=== PATIENT | female | born 1985 | race Two or more races ===

== ENCOUNTER 2022-10-11 17:34 | Emergency (ER) | payer BC, OTHER ==
[~2022-10-11] VITALS: Ht 157.5 cm; Wt 95.7 kg
[2022-10-11 18:14] LABS: Basophils # (auto) 0.1 10 ^3/uL (0-0.2); Basophils % (auto) 1.4 % (0.0-2.0); Eosinophils # (auto) 0.2 10 ^3/uL (0-0.8); Hematocrit 39.3 % (36.0-46.0); Hemoglobin 13.2 g/dL (12.2-16.2); Lymphocytes # (auto) 1.1 10 ^3/uL (0.4-5.4); Lymphocytes % (auto) 18.7 % (10.0-50.0); Mean Corpuscular Hemoglobin 28.7 pg (28.0-32.0); Mean Corpuscular Hgb Conc. 33.6 g/dL (32.0-36.0); Mean Corpuscular Volume 85.3 fL (80.0-100.0); Monocytes # (auto) 0.9 10 ^3/uL (0-1.3); Monocytes % (auto) 14.8 % (0.0-12.0); Neutrophils # (auto) 3.6 10 ^3/uL (1.6-8.6); Neutrophils % (auto) 62.1 % (37.0-80.0); Nucleated Red Blood Cells % 0.2 %; Red Cell Distribution Width 15.8 % (11.8-14.3); White Blood Cell 5.9 10^3/uL (4.4-10.8)
[2022-10-11 18:35] LABS: Albumin 3.5 g/dL (3.4-5.0); Calcium 8.9 mg/dL (8.5-10.1); Potassium 3.7 mmol/L (3.5-5.1)
[2022-10-11 18:43] LABS: BUN/Creatinine Ratio 13.6 (10.0-20.0); Bilirubin, Total 0.2 mg/dL (0.2-1.0); Total Protein 7.4 g/dL (6.4-8.2)
[2022-10-11] MEDS ORDERED: IOHEXOL 350 MG/ML 100ML IJ ONE (22:14)
[2022-10-11] MEDS ORDERED: MEDR5TAB28 PO (23:33)
[2022-10-11] MEDS ORDERED: ALBU108A5 IN (23:33)
[2022-10-11] MEDS ORDERED: AZITTAB PO (23:33)
[2022-10-12 00:04] VITALS: BP 109/61
[2022-10-12] MEDS ORDERED: ALBUTEROL SULF 2.5 MG/0.5ML(0.5%) NEB SOLN NEB ONE (00:30)
[2022-10-12] MEDS ORDERED: IPRATROPIUM BROM 0.5 MG/2.5ML INH SOL NEB ONE (00:30)
== END 2022-10-12 01:02 | disposition home or self-care (01) ==
LOC: ER 17:34
DX: N94.6 Dysmenorrhea, unspecified (principal); J45.909 Unspecified asthma, uncomplicated; R10.2 Pelvic and perineal pain; Z90.49 Acquired absence of other specified parts of digestive tract; Z98.890 Other specified postprocedural states
CPT/HCPCS: 36415; 70450; 71045; 71275; 76830; 76856; 80053; 84702; 85025; 85379; 86850; 86900; 86901; 93005; 94640; 99285; J7644; Q9967

== ENCOUNTER 2024-01-06 00:25 | Emergency (ER) | payer BC, OTHER ==
[~2024-01-06] VITALS: Ht 157.5 cm; Wt 97.7 kg
[~2024-01-06 00:25] MED LIST: ALBU108A5 IN; AZITTAB PO; MEDR5TAB28 PO
[2024-01-06] MEDS: IBUPROFEN 800 MG TAB PO ONE (00:50)
[2024-01-06 01:50] VITALS: BP 113/62
[2024-01-06 02:25] VITALS: TEMP 98.6
[2024-01-06] MEDS ORDERED: ACET500T58 PO (02:31)
[2024-01-06] MEDS ORDERED: AZIT-43 PO (02:31)
[2024-01-06] MEDS ORDERED: ALBUAER3 IN (02:31)
[2024-01-06] MEDS ORDERED: PRED20TA2 PO (02:31)
[2024-01-06 02:48] LABS: Rapid Influenza A Negative (Negative); Rapid Influenza B Negative (Negative)
[2024-01-06] MEDS: cefTRIAXone SOD 1,000 MG VL IM ONE (02:48)
[2024-01-06] MEDS: DexAMETHasone SOD PHOS 10MG/1ML VIAL INJ IM ONE (02:48)
[2024-01-06 02:49] VITALS: PULSE 76; RESP 16; O2SAT 96
[2024-01-06 02:53] LABS: COVID19 ANTIGEN SOFIA FIA POSITIVE (NEGATIVE)
== END 2024-01-06 02:57 | disposition home or self-care (01) ==
LOC: ER 00:25
DX: U07.1 COVID-19 (principal); J06.9 Acute upper respiratory infection, unspecified; J45.909 Unspecified asthma, uncomplicated; Z90.49 Acquired absence of other specified parts of digestive tract
CPT/HCPCS: 36415; 87426; 87804; 96372; 99284; J0696; J1100

== ENCOUNTER 2024-05-03 05:07 | Emergency (ER) | payer BC ==
[~2024-05-03] VITALS: Ht 157.5 cm; Wt 100.1 kg
[~2024-05-03 05:07] MED LIST changes: +ACET500T58 PO; +ALBUAER3 IN; +AZIT-43 PO; +PRED20TA2 PO
--- NOTE | 2024-05-03 06:31 | ED.PDOC ---
SOB-HPI HPI Comments 38 year old female presents to the ED with chief complaint of shortness of breath. Patient reports that she has been experiencing shortness of breath for the past 4 days with associated sore throat for the past 2 days. Patient relays that she has history of asthma and physical activity such as walking exacerbates her SOB. Patient denies any chest pain, cough, dizziness, fever, chills, or headache. 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 History Family History Family History: Unknown Social History Smoker: Non-Smoker Alcohol: Denies ETOH Use Drugs: Denies Drug Use Lives In: Home Constitutional: denies: chills, diaphoresis, fatigue, fever, malaise, sweats, weakness, others EENTM: reports: throat pain; denies: blurred vision, double vision, ear bleeding, ear discharge, ear drainage, ear pain, ear ringing, eye pain, eye redness, hearing loss, mouth pain, mouth swelling, nasal discharge, nose bleeding, nose congestion, nose pain, photophobia, tearing, throat swelling, voice changes, others Respiratory: reports: SOB at rest, shortness of breath, SOB with excertion; denies: cough, hemoptysis, orthopnea, stridor, wheezing, others Cardiovascular: denies: chest pain, dizzy spells, diaphoresis, Dyspnea on exertion, edema, irregular heart beat, left arm pain, lightheadedness, palpitati ons, PND, syncope, others Gastrointestinal: denies: abdomen distended, abdominal pain, blood streaked bowels, constipated, diarrhea, dysphagia, difficulty swallowing, hematemesis, melena, nausea, poor appetite, poor fluid intake, rectal bleeding, rectal pain, vomiting, others Genitourinary: denies: abnormal vagina bleeding, burning, dyspareunia, dysuria, flank pain, frequency, hematuria, incontinence, pain, , vagina discharge, urgency, others Neurological: denies: dizziness, fainting, headache, left sided numbness, left sided weakness, numbness, paresthesia, pre-existing deficit, right sided numbness, right sided weakness, seizure, speech problems, tingling, tremors, weakness, others Musculoskeletal: denies: back pain, gout, joint pain, joint swelling, muscle pain, muscle stiffness, neck pain, others Integumetry: denies: bruises, change in color, change in hair/nails, dryness, laceration, lesions, lumps, rash, wounds, others Allergic/Immunocompromised: denies: Difficulty Healing, Frequent Infections, Hives, Itching, others Hematologic/Lymphatic: denies: anemia, blood clots, easy bleeding, easy bruisin g, swollen glands, others Endocrine: denies: excessive hunger, excessive sweating, excessive thirst, excessive urination, flushing, intolerance to cold, intolerance to heat, unexplained weight gain, unexplained weight loss, others Psychiatric: denies: anxiety, bipolar disorder, depression, hopeless, panic disorder, schizophrenia, sleepless, suicidal, others All Other Systems: Reviewed and Negative Physical Exam General Appearance: Moderate Distress, Normal HEENT: Normal ENT Inspection, PERRL/EOMI Neck: Full Range of Motion, Non-Tender, Normal, Normal Inspection Respiratory: Chest Non-Tender, No Accessory Muscle Use, Other (Coarse breath sounds) Cardiovascular: No Edema, No JVD, No Murmur, No Gallop, Normal Peripheral Pulses, Regular Rate/Rhythm Breast Exam: Deferred Gastrointestinal: No Organomegaly, Non Tender, No Pulsatile Mass, Normal Bowel Sounds, Soft Genitalia: Deferred Pelvic: Deferred Rectal: Deferred Extremities: No calf tenderness, Normal capillary refill, Normal inspection, Normal range of motion, Non-tender, No pedal edema Musculoskeletal : Apperance: Normal Neurologic: Alert, principal statistical scientist II-XII nml as Tested, No Motor Deficits, Normal Affect, Normal Mood, No Sensory Deficits Cerebellar Function: Normal Reflexes: Normal Skin: Dry, Normal Color, Warm Peripheral Pulses: 3+ Radial (R), 3+ Radial (L) Lymphatic: No Adenopathy Was a procedure done? Was a procedure done?: No Differential Dx Differential Diagnosis: Anxiety, Asthma, Bronchitis, CHF, COPD X-Ray, Labs, Meds, VS Vital Signs Date Time Temp Pulse Resp B/P (MAP) Pulse Ox O2 Delivery O2 Flow Rate FiO2 05/03/24 08:34 24 98 Room Air* 0 21 05/03/24 07:19 70 20 99 Room Air 05/03/24 07:19 72 18 101/58 (72) 05/03/24 05:18 98.5 79 16 113/49 (70) 96 Lab Test 05/03/24 08:00 05/03/24 06:23 Range/Units Urine Color Light-yellow Yellow Urine Clarity Turbid H Clear Urine pH 5.0 5.0-9.0 Urine Specific [place] 1.021 1.001-1.035 Urine Protein Negative Negative Urine Ketones Negative Negative Urine Blood Negative Negative /uL Urine Nitrite Negative Negative Urine Bilirubin Negative Negative Urine Urobilinogen Normal Negative mg/dL Urine Leukocyte Esterase Negative Negative /uL Urine RBC 2 0 - 4 /hpf Urine WBC 2 0 - 5 /hpf Urine Squamous Epithelial Cells Few <5 /hpf Urine Bacteria None seen None Seen /hpf Urine Mucus Few None Seen Urine Glucose Normal Normal mg/dL White Blood Count 7.2 4.4-10.8 10^3/uL Red Blood Count 4.87 4.0-5.20 10^6/uL Hemoglobin 14.5 12.2-16.2 g/dL Hematocrit 42.9 36.0-46.0 % Mean Corpuscular Volume 88.2 80.0-100.0 fL Mean Corpuscular Hemoglobin 29.8 28.0-32.0 pg Mean Corpuscular Hemoglobin Concent 33.8 32.0-36.0 g/dL Red Cell Distribution Width 14.4 H 11.8-14.3 % Platelet Count 235 140-450 10^3/uL Mean Platelet Volume 9.1 6.9-10.8 fL Neutrophils (%) (Auto) 57.7 37.0-80.0 % Lymphocytes (%) (Auto) 27.0 10.0-50.0 % Monocytes (%) (Auto) 5.8 0.0-12.0 % Eosinophils (%) (Auto) 8.5 H 0.0-7.0 % Basophils (%) (Auto) 1.0 0.0-2.0 % Neutrophils # (Auto) 4.2 1.6-8.6 10 ^3/uL Lymphocytes # (Auto) 1.9 0.4-5.4 10 ^3/uL Monocytes # (Auto) 0.4 0-1.3 10 ^3/uL Eosinophils # (Auto) 0.6 0-0.8 10 ^3/uL Basophils # (Auto) 0.1 0-0.2 10 ^3/uL Nucleated Red Blood Cells 0.1 % Sodium Level 143 136-145 mmol/L Potassium Level 4.0 3.5-5.1 mmol/L Chloride Level 109 H 98-107 mmol/L Carbon Dioxide Level 26 20-31 mmol/L Anion Gap 8 5-15 Blood Urea Nitrogen 8 L 9-23 mg/dL Creatinine 0.81 0.550-1.02 mg/dL Glomerular Filtration Rate Calc 95 >90 mL/min BUN/Creatinine Ratio 9.9 L 10.0-20.0 Serum Glucose 109 H 74-106 mg/dL Calcium Level 9.5 8.7-10.4 mg/dL Current Medications Medications (Trade) Dose Ordered Sig/[place] Route Start Time Stop Time Status Last Admin Methylprednisolone Sodium Succinate (Solu Medrol) 125 mg ONCE ONCE IV 05/03/24 07:00 05/03/24 07:01 DC 05/03/24 07:46 Albuterol (Ventolin Medneb) 5 mg ONCE ONCE NEB 05/03/24 08:30 05/03/24 08:31 DC 05/03/24 08:33 Ipratropium [place] (Atrovent Medneb) 0.5 mg ONCE ONCE NEB 05/03/24 08:30 05/03/24 08:31 DC 05/03/24 08:34 Patient alert. Complaining of shortness a breath. Saturation pristine on room air. Vitals stable. Unable to take deep breaths. Possible upper respiratory tract infection. Reviewed her history. Was given steroid pain Explained to the patient. Continue cardiac monitoring. Chest XR: FINDINGS: Lines and Tubes: None Lungs: No focal consolidation. Pleura: No effusion.No pneumothorax. Cardiomediastinal contours: Unremarkable Bones: No acute osseous abnormality. IMPRESSION: 1. No acute cardiopulmonary disease. Images Reviewed?: Images reviewed and evaluated by me Time of 1ST Reevaluation: 07:27 Reevaluation 1ST: Improved Patient Education/Counseling: Diagnosis, Treatment Family Education/Counseling: No Family Present Departure 1 Departure Time of Disposition: 06:54 Impression: Primary Impression: Acute respiratory distress Additional Impressions: Pneumonitis Asthma exacerbation Qualified Codes: J45.41 - Moderate persistent asthma with (acute) exacerbation Disposition: ADMITTED INPATIENT Admit to: Med Surg Condition: Guarded Critical Care Note Critical Care Time?: Yes (45 min-critical care time only) Stability Stability form required: No Heart Score Heart Score: Heart Score Response (Comments) Value History N/A 0 EKG N/A 0 Age N/A 0 Risk Factors N/A 0 Troponin N/A 0 Total 0 I personally scribed for OZ CARRASQUILLO MD ([email or web address]) on 05/03/24 at 06:31. Electronically submitted by Tobias King ([email or web address]). I personally scribed for OZ CARRASQUILLO MD ([email or web address]) on 05/03/24 at 09:32. Electronically submitted by Tobias King ([email or web address]). OZ CARRASQUILLO MD May 03, 2024 06:31
[2024-05-03 07:10] LABS: Basophils # (auto) 0.1 10 ^3/uL (0-0.2); Eosinophils # (auto) 0.6 10 ^3/uL (0-0.8); Eosinophils % (auto) 8.5 % (0.0-7.0); Hematocrit 42.9 % (36.0-46.0); Hemoglobin 14.5 g/dL (12.2-16.2); Lymphocytes # (auto) 1.9 10 ^3/uL (0.4-5.4); Mean Corpuscular Hemoglobin 29.8 pg (28.0-32.0); Mean Corpuscular Hgb Conc. 33.8 g/dL (32.0-36.0); Mean Corpuscular Volume 88.2 fL (80.0-100.0); Monocytes # (auto) 0.4 10 ^3/uL (0-1.3); Monocytes % (auto) 5.8 % (0.0-12.0); Neutrophils # (auto) 4.2 10 ^3/uL (1.6-8.6); Neutrophils % (auto) 57.7 % (37.0-80.0); Nucleated Red Blood Cells % 0.1 %; Platelet Count (auto) 235 10^3/uL (140-450); Red Blood Cells 4.87 10^6/uL (4.0-5.20); Red Cell Distribution Width 14.4 % (11.8-14.3); White Blood Cell 7.2 10^3/uL (4.4-10.8)
[2024-05-03 07:19] VITALS: BP 101/58; PULSE 70
[2024-05-03 07:19] LABS: Anion Gap 8 (5-15); Carbon Dioxide 26 mmol/L (20-31); Chloride 109 mmol/L (98-107); Sodium 143 mmol/L (136-145)
[2024-05-03 07:20] LABS: Calcium 9.5 mg/dL (8.7-10.4)
[2024-05-03 07:25] LABS: BUN/Creatinine Ratio 9.9 (10.0-20.0); Blood Urea Nitrogen 8 mg/dL (9-23); Glucose 109 mg/dL (74-106)
[2024-05-03] MEDS: methylPREDNISolone SOD SUCC 125 MG/2 ML VL IV ONE (07:46)
--- NOTE | 2024-05-03 08:18 | DVH ---
CHEST RADIOGRAPH Indication:sob Technique: Single frontal view of the chest was obtained Comparison: XY CHEST XRAY 1 VIEW on DOS: 10/11/22 FINDINGS: Lines and Tubes: None Lungs: No focal consolidation. Pleura: No effusion.No pneumothorax. Cardiomediastinal contours: Unremarkable Bones: No acute osseous abnormality. IMPRESSION: 1. No acute cardiopulmonary disease. HS:Y
[2024-05-03] MEDS: ALBUTEROL SULF 2.5 MG/0.5ML(0.5%) NEB SOLN NEB ONE (08:33)
[2024-05-03 08:34] VITALS: RESP 24; O2SAT 98
[2024-05-03 08:34] LABS: Urine Bacteria None Seen /hpf (None Seen)
[2024-05-03] MEDS: IPRATROPIUM BROM 0.5 MG/2.5ML INH SOL NEB ONE (08:34)
[2024-05-03 08:51] LABS: Urine Blood Negative /uL (Negative); Urine Clarity Turbid (Clear); Urine Color Light-Yellow (Yellow); Urine Mucus FEW (None Seen); Urine Protein, UAD Negative (Negative); Urine Specific Gravity 1.021 (1.001-1.035); Urine Urobilinogen Normal (Negative); Urine WBC 2 /hpf (0 - 5)
== END 2024-05-03 10:21 | disposition left against medical advice (07) ==
LOC: ER 05:07
DX: R06.03 Acute respiratory distress (principal); J98.4 Other disorders of lung; J45.901 Unspecified asthma with (acute) exacerbation; Z90.49 Acquired absence of other specified parts of digestive tract; Z98.890 Other specified postprocedural states
CPT/HCPCS: 36415; 71045; 80048; 81001; 85025; 94640; 96374; 99291; J2919

== ENCOUNTER 2024-07-11 07:48 | Inpatient (IN) | payer BC ==
[2024-07-11] VITALS (11 sets, daily range): BP systolic 110–116; BP diastolic 69–77; PULSE 62–113; RESP 16–25; TEMP 98; O2SAT 94–100
[~2024-07-11] VITALS: Ht 157.5 cm; Wt 75.0 kg
[2024-07-11] MEDS: IPRATROPIUM BROM 0.5 MG/2.5ML INH SOL NEB ONE ×2 (08:16→11:04)
[2024-07-11] MEDS: IPRATROPIUM BROM 0.5 MG/2.5ML INH SOL ONE (08:17)
[2024-07-11] MEDS: ALBUTEROL SULF 2.5 MG/0.5ML(0.5%) NEB SOLN NEB ONE ×2 (08:17→11:04)
[2024-07-11] MEDS: ALBUTEROL SULF 2.5 MG/0.5ML(0.5%) NEB SOLN ONE (08:17)
--- NOTE | 2024-07-11 08:20 | DVH ---
Procedure: XY CHEST PORTABLE 07/11/2024 08:06 AM Indication: sob Comparison: XY CHEST PORTABLE on DOS: 05/03/24, XY CHEST XRAY 1 VIEW on DOS: 10/11/22 TECHNIQUE: XY CHEST PORTABLE FINDINGS: Medical devices: None. Cardiomediastinal: The heart is normal in size. Pulmonary vasculature is within normal limits. Lungs: No focal pulmonary opacity is seen. The costophrenic angles are clear. No pneumothorax. Bones/soft tissues: No acute abnormality is noted. IMPRESSION: 1. No acute cardiopulmonary disease.
--- NOTE | 2024-07-11 08:25 | ED.PDOC ---
SOB-HPI HPI Comments 39 year old female presents to the ED with chief complaint of SOB. Patient reports that she has been experiencing SOB with associated cough and headache for the past 5 days. Patient relays that she has history of asthma and has been seen in the past for similar complaints. Patient denies any chest pain, sore throat, N/V, dizziness, fever, or chills. 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 Family History Family History: Unknown Social History Smoker: Non-Smoker Alcohol: Denies ETOH Use Drugs: Denies Drug Use Lives In: Home Constitutional: denies: chills, diaphoresis, fatigue, fever, malaise, sweats, weakness, others EENTM: denies: blurred vision, double vision, ear bleeding, ear discharge, ear drainage, ear pain, ear ringing, eye pain, eye redness, hearing loss, mouth pain, mouth swelling, nasal discharge, nose bleeding, nose congestion, nose pa in, photophobia, tearing, throat pain, throat swelling, voice changes, others Respiratory: reports: cough, shortness of breath; denies: hemoptysis, orthopnea, SOB at rest, SOB with excertion, stridor, wheezing, others Cardiovascular: denies: chest pain, dizzy spells, diaphoresis, Dyspnea on exertion, edema, irregular heart beat, left arm pain, lightheadedness, palpitations, PND, syncope, others Gastrointestinal: denies: abdomen distended, abdominal pain, blood streaked bowels, constipated, diarrhea, dysphagia, difficulty swallowing, hematemesis, melena, nausea, poor appetite, poor fluid intake, rectal bleeding, rectal pain, vomiting, others Genitourinary: denies: abnormal vagina bleeding, burning, dyspareunia, dysuria, flank pain, frequency, hematuria, incontinence, pain, , vagina discharge, urgency, others Neurological: reports: headache; denies: dizziness, fainting, left sided numbness, left sided weakness, numbness, paresthesia, pre-existing deficit, rig ht sided numbness, right sided weakness, seizure, speech problems, tingling, tremors, weakness, others Musculoskeletal: denies: back pain, gout, joint pain, joint swelling, muscle pain, muscle stiffness, neck pain, others Integumetry: denies: bruises, change in color, change in hair/nails, dryness, laceration, lesions, lumps, rash, wounds, others Allergic/Immunocompromised: denies: Difficulty Healing, Frequent Infections, Hives, Itching, others Hematologic/Lymphatic: denies: anemia, blood clots, easy bleeding, easy bruising, swollen glands, others Endocrine: denies: excessive hunger, excessive sweating, excessive thirst, excessive urination, flushing, intolerance to cold, intolerance to heat, unexplained weight gain, unexplained weight loss, others Psychiatric: denies: anxiety, bipolar disorder, depression, hopeless, panic disorder, schizophrenia, sleepless, suicidal, others All Other Systems: Reviewed and Negative Physical Exam General Appearance: Moderate Distress, Normal HEENT: Normal ENT Inspection, PERRL/EOMI Neck: Full Range of Motion, Non-Tender, Normal, Normal Inspection Respiratory: Accessory Muscle Use, Chest Non-Tender, Respiratory Distress, Wheezing Cardiovascular: No Edema, No JVD, No Murmur, No Gallop, Normal Peripheral Pulses, Regular Rate/Rhythm Breast Exam: Deferred Gastrointestinal: No Organomegaly, Non Tender, No Pulsatile Mass, Normal Bowel Sounds, Soft Genitalia: Deferred Pelvic: Deferred Rectal: Deferred Extremities: No calf tenderness, Normal capillary refill, Normal inspection, Normal range of motion, Non-tender, No pedal edema Musculoskeletal : Apperance: Normal Neurologic: Alert, infant childcare provider II-XII nml as Tested, No Motor Deficits, Normal Affect, Normal Mood, No Sensory Deficits Cerebellar Function: NOT DONE Reflexes: NOT DONE Skin: Dry, Normal Color, Warm Peripheral Pulses: 3+ Radial (R), 3+ Radial (L) Lymphatic: No Adenopathy Was a procedure done? Was a procedure done?: No Differential Dx Differential Diagnosis: Anxiety, Asthma, Bronchitis, Pneumonia, URI X-Ray, Labs, Meds, VS Vital Signs Date Time Temp Pulse Resp B/P (MAP) Pulse Ox O2 Delivery O2 Flow Rate FiO2 07/11/24 08:17 20 97 Room Air* 0 21 21 07/11/24 08:03 98.3 88 25 11/75 (54) 98 98.3 07/11/24 07:59 98.1 82 18 111/72 (85) 97 07/11/24 07:59 88 25 98 Room Air* 0 21 Lab Test 07/11/24 08:20 07/11/24 08:16 Range/Units White Blood Count Pending Red Blood Count Pending Hemoglobin Pending Hematocrit Pending Mean Corpuscular Volume Pending Mean Corpuscular Hemoglobin Pending Mean Corpuscular Hemoglobin Concent Pending Red Cell Distribution Width Pending Platelet Count Pending Mean Platelet Volume Pending Neutrophils (%) (Auto) Pending Lymphocytes (%) (Auto) Pending Monocytes (%) (Auto) Pending Basophils (%) (Auto) Pending Neutrophils # (Auto) Pending Lymphocytes # (Auto) Pending Monocytes # (Auto) Pending Sodium Level 143 136-145 mmol/L Potassium Level 4.0 3.5-5.1 mmol/L Chloride Level 109 H 98-107 mmol/L Carbon Dioxide Level 27 20-31 mmol/L Anion Gap 7 5-15 Blood Urea Nitrogen 7 L 9-23 mg/dL Creatinine 0.79 0.550-1.02 mg/dL Glomerular Filtration Rate Calc 97 >90 mL/min BUN/Creatinine Ratio 8.9 L 10.0-20.0 Serum Glucose 102 74-106 mg/dL Calcium Level 9.3 8.7-10.4 mg/dL Urine Color Light-yellow Yellow Urine Clarity Turbid H Clear Urine pH 5.0 5.0-9.0 Urine Specific [place] 1.012 1.001-1.035 Urine Protein Negative Negative Urine Ketones Negative Negative Urine Blood Negative Negative /uL Urine Nitrite Negative Negative Urine Bilirubin Negative Negative Urine Urobilinogen Normal Negative mg/dL Urine Leukocyte Esterase Negative Negative /uL Urine RBC 1 0 - 4 /hpf Urine Microscopic WBC 1 0-5 /HPF Urine Squamous Epithelial Cells Few <5 /hpf Urine Bacteria None seen None Seen /hpf Urine Glucose Normal Normal mg/dL Current Medications Medications (Trade) Dose Ordered Sig/[place] Route Start Time Stop Time Status Last Admin Ipratropium [place] (Atrovent Medneb) 0.5 mg ONCE ONCE NEB 07/11/24 08:00 07/11/24 08:01 DC 07/11/24 08:16 Methylprednisolone Sodium Succinate (Solu Medrol) 125 mg ONCE ONCE IV 07/11/24 08:30 07/11/24 08:31 DC 07/11/24 08:53 Chest XR: FINDINGS: Medical devices: None. Cardiomediastinal: The heart is normal in size. Pulmonary vasculature is within normal limits. Lungs: No focal pulmonary opacity is seen. The costophrenic angles are clear. No pneumothorax. Bones/soft tissues: No acute abnormality is noted. IMPRESSION: 1. No acute cardiopulmonary disease. Patient alert. Complaining of shortness a breath. Vitals stable. Answering all questions. Using accessory muscles. Was given steroid. Was given breathing treatment. Chest x-ray reviewed does not show any acute changes. Was given magnesium. Reviewed her history. Explained to the patient. Continue cardiac monitoring. Images Reviewed?: Images reviewed and evaluated by me Time of 1ST Reevaluation: 09:06 Reevaluation 1ST: Unchanged Patient Education/Counseling: Diagnosis, Treatment Family Education/Counseling: No Family Present Additional Information I reviewed the following notes from patient's past medical encounters: 05/03/24 for SOB The following tests were ordered, and results were reviewed by me: CXR, BMP, UA, CBC Additional Information was gathered from interviewing the following independent historians: None I reviewed and agreed with the following test results read by other providers: CXR I discussed treatment and results with medical personnel. Departure 1 Departure Time of Disposition: 09:27 Impression: Primary Impression: Acute respiratory distress Additional Impression: Asthma exacerbation Qualified Codes: J45.41 - Moderate persistent asthma with (acute) exacerbation Disposition: 09 ADMITTED INPATIENT Admit to: Med Surg Condition: Guarded Critical Care Note Critical Care Time?: Yes (90 min-critical care time only) Stability Stability form required: No Heart Score Heart Score: Heart Score Response (Comments) Value History N/A 0 EKG N/A 0 Age N/A 0 Risk Factors N/A 0 Troponin N/A 0 Total 0 I personally scribed for OZ CARRASQUILLO MD ([email or web address]) on 07/11/24 at 08:25. Electronically submitted by Tobias King ([email or web address]). OZ CARRASQUILLO MD Jul 11, 2024 08:25
[2024-07-11 08:43] LABS: Basophils # (auto) 0.1 10 ^3/uL (0-0.2); Basophils % (auto) 1.1 % (0.0-2.0); Eosinophils # (auto) 0.5 10 ^3/uL (0-0.8); Eosinophils % (auto) 8.4 % (0.0-7.0); Hematocrit 40.4 % (36.0-46.0); Hemoglobin 13.5 g/dL (12.2-16.2); Lymphocytes % (auto) 30.9 % (10.0-50.0); Mean Corpuscular Hemoglobin 29.4 pg (28.0-32.0); Mean Corpuscular Hgb Conc. 33.5 g/dL (32.0-36.0); Mean Corpuscular Volume 87.8 fL (80.0-100.0); Monocytes # (auto) 0.3 10 ^3/uL (0-1.3); Monocytes % (auto) 4.9 % (0.0-12.0); Neutrophils # (auto) 3.5 10 ^3/uL (1.6-8.6); Neutrophils % (auto) 54.7 % (37.0-80.0); Platelet Count (auto) 201 10^3/uL (140-450); Red Blood Cells 4.61 10^6/uL (4.0-5.20); Red Cell Distribution Width 13.7 % (11.8-14.3); White Blood Cell 6.5 10^3/uL (4.4-10.8)
[2024-07-11 08:53] LABS: Sodium 143 mmol/L (136-145)
[2024-07-11] MEDS: methylPREDNISolone SOD SUCC 125 MG/2 ML VL IV ONE (08:53)
[2024-07-11 08:54] LABS: Anion Gap 7 (5-15); Calcium 9.3 mg/dL (8.7-10.4); Carbon Dioxide 27 mmol/L (20-31)
[2024-07-11 08:59] LABS: BUN/Creatinine Ratio 8.9 (10.0-20.0); Glucose 102 mg/dL (74-106)
[2024-07-11 09:00] LABS: Blood Urea Nitrogen 7 mg/dL (9-23); Chloride 109 mmol/L (98-107)
[2024-07-11 09:12] LABS: Urine Bacteria None Seen /hpf (None Seen)
[2024-07-11 09:19] LABS: Urine Blood Negative /uL (Negative); Urine Clarity Turbid (Clear); Urine Color Light-Yellow (Yellow); Urine Protein, UAD Negative (Negative); Urine Specific Gravity 1.012 (1.001-1.035); Urine Squamous Epithelial Cell FEW /hpf (<5); Urine Urobilinogen Normal (Negative); Urine WBC 1 /HPF (0-5)
[2024-07-11] MEDS: MAGNESIUM SULFATE 1GM/100ML 100 ML IV ONE (09:38)
--- NOTE | 2024-07-11 11:02 | DVHHP2 ---
History of Present Illness Reason for Visit: SOB History of Present Illness Fadumo Masters is a 39-year-old female with past medical history of asthma, cholecystectomy, , right kidney stent over 3 years ago at [facility] who presents to the ED for shortness of breath, nonproductive cough, and headache x5 days. Patient states that she was at home on her couch and just started suddenly getting short of breath with wheezing and when she took her breathing treatments with no relief. Patient denies any recent sick contacts or recent illnesses. Patient denies any chest pain, fever, chills, lightheadedness, dizziness, abdominal pain, nausea, vomiting, and diarrhea. Pulmonary: Asthma Past Surgical History: Cholecystectomy, , Other (Right kidney stent) Family History: None Smoke: No ALCOHOL: none Drugs: None Lives: with Family Domestic Violence: Neg Review of Systems Constitutional: Yes: Other (Headache); No: Fever, Chills, Sweats, Weakness, Malaise Eyes: No: Pain, Vision change, Conjunctivae inflammation, Eyelid inflammation, Other, Redness ENT: No: Ear pain, Ear discharge, Nose pain, Nose discharge, Nose congestion, Mouth pain, Mouth swelling, Throat pain, Throat swelling, Other Respiratory: Cough, Shortness of breath; No: Dry, SOB with excertion, Wheezing, Hemoptysis, Pleuritic Pain, Sputum, Wheezing, Other Cardiovascular: No: Chest Pain, Palpitations, Orthopnea, Paroxysmal Noc. Dyspnea, Edema, Lt Headedness, Other Gastrointestinal: No: Nausea, Vomiting, Abdominal Pain, Diarrhea, Constipation, Melena, Hematochezia, Other Genitourinary: No Dysuria, No Frequency, No Incontinence, No Hematuria, No Retention, No Other Musculoskeletal: No: other, neck pain, shoulder pain, arm pain, back pain, hand pain, leg pain, foot pain Skin: No: Rash, Lesions, Jaundice, Bruising, Other Neurological: No: Weakness, Numbness, Incoordination, Change in speech, Confusion, Seizures, Other Allergies: Coded Allergies: NO KNOWN ALLERGIES (Unverified , 08/27/22) Exam Vital Signs Vital Signs Date Time Temp Pulse Resp B/P (MAP) Pulse Ox O2 Delivery O2 Flow Rate FiO2 07/11/24 08:17 20 97 Room Air* 0 07/11/24 08:03 98.3 88 (54) 98.3 General Appearance: Alert, Oriented X3, Cooperative, No acute distress HEENT: Atraumatic, PERRLA, EOMI, Mucous membr. moist/pink Respiratory: Normal air movement Cardiovascular: Regular rate, Normal S1, Normal S2, No murmurs Abdominal: Normal bowel sounds, Soft, No tenderness, No hepatospenomegaly, No masses Extremities: No clubbing, No cyanosis, No edema, Normal pulses, No tenderness/swelling Skin: No rashes, No breakdown, No significant lesion Neuro: Normal gait, Normal speech, Strength at 5/5 X4 ext, Normal tone, Sensation intact Psych/Mental Status: Mental status NL, Mood NL Labs/Xrays Labs Test 07/11/24 08:20 07/11/24 08:16 Range/Units White Blood Count 6.5 4.4-10.8 10^3/uL Red Blood Count 4.61 4.0-5.20 10^6/uL Hemoglobin 13.5 12.2-16.2 g/dL Hematocrit 40.4 36.0-46.0 % Mean Corpuscular Volume 87.8 80.0-100.0 fL Mean Corpuscular Hemoglobin 29.4 28.0-32.0 pg Mean Corpuscular Hemoglobin Concent 33.5 32.0-36.0 g/dL Red Cell Distribution Width 13.7 11.8-14.3 % Platelet Count 201 140-450 10^3/uL Mean Platelet Volume 8.6 6.9-10.8 fL Neutrophils (%) (Auto) 54.7 37.0-80.0 % Lymphocytes (%) (Auto) 30.9 10.0-50.0 % Monocytes (%) (Auto) 4.9 0.0-12.0 % Eosinophils (%) (Auto) 8.4 H 0.0-7.0 % Basophils (%) (Auto) 1.1 0.0-2.0 % Neutrophils # (Auto) 3.5 1.6-8.6 10 ^3/uL Lymphocytes # (Auto) 2.0 0.4-5.4 10 ^3/uL Monocytes # (Auto) 0.3 0-1.3 10 ^3/uL Eosinophils # (Auto) 0.5 0-0.8 10 ^3/uL Basophils # (Auto) 0.1 0-0.2 10 ^3/uL Nucleated Red Blood Cells 0.0 % Sodium Level 143 136-145 mmol/L Potassium Level 4.0 3.5-5.1 mmol/L Chloride Level 109 H 98-107 mmol/L Carbon Dioxide Level 27 20-31 mmol/L Anion Gap 7 5-15 Blood Urea Nitrogen 7 L 9-23 mg/dL Creatinine 0.79 0.550-1.02 mg/dL Glomerular Filtration Rate Calc 97 >90 mL/min BUN/Creatinine Ratio 8.9 L 10.0-20.0 Serum Glucose 102 74-106 mg/dL Calcium Level 9.3 8.7-10.4 mg/dL Urine Color Light-yellow Yellow Urine Clarity Turbid H Clear Urine pH 5.0 5.0-9.0 Urine Specific [place] 1.012 1.001-1.035 Urine Protein Negative Negative Urine Ketones Negative Negative Urine Blood Negative Negative /uL Urine Nitrite Negative Negative Urine Bilirubin Negative Negative Urine Urobilinogen Normal Negative mg/dL Urine Leukocyte Esterase Negative Negative /uL Urine RBC 1 0 - 4 /hpf Urine Microscopic WBC 1 0-5 /HPF Urine Squamous Epithelial Cells Few <5 /hpf Urine Bacteria None seen None Seen /hpf Urine Glucose Normal Normal mg/dL Procedure: XY CHEST PORTABLE 07/11/2024 08:06 AM Indication: sob Comparison: XY CHEST PORTABLE on DOS: 05/03/24, XY CHEST XRAY 1 VIEW on DOS: 10/11/22 TECHNIQUE: XY CHEST PORTABLE FINDINGS: Medical devices: None. Cardiomediastinal: The heart is normal in size. Pulmonary vasculature is within normal limits. Lungs: No focal pulmonary opacity is seen. The costophrenic angles are clear. No pneumothorax. Bones/soft tissues: No acute abnormality is noted. IMPRESSION: 1. No acute cardiopulmonary disease. Assessment/Plan Assessment/Plan Assessment/Plan: Acute on chronic asthma exacerbation Labs UA Magnesium ordered in ED IV steroids Respiratory treatments Chest x-ray A.m. labs Antiemetics Pain management Antipyretics IV antibiotics-ceftriaxone Obesity Counseled patient on lifestyle modifications, diet, and exercise FEN/PPX diet NPO DVT ppx -not indicated patient ambulating PUD ppx - Famotidine given with steroids Discussed plan of care with patient and nurse Home medications reconciled Admit to med surg Plan discussed with: Patient My Orders Orders - THON,SALINA K [employer]CH[employer]RAWING [employer] Procedure Category Date Status Time Albuterol Medneb PHA 07/11/24 Transmitted (Ventolin Medneb) 14:00 Albuterol Medneb PHA 07/11/24 Transmitted (Ventolin Medneb) 11:00 Ipratropium Medneb PHA 07/11/24 Transmitted (Atrovent Medneb) 14:00 Ipratropium Medneb PHA 07/11/24 Transmitted (Atrovent Medneb) 11:00 Methylprednisolone PHA 07/11/24 Transmitted Sod Succ (Solu Medrol 14:00 Famotidine Injection PHA 07/12/24 Transmitted (Pepcid Injection) 10:00 Admit ADMIT 07/11/24 Transmitted 10:48 Allergies JIM 07/11/24 Transmitted 10:48 Code Status CODE 07/11/24 Transmitted 10:48 Ondansetron Hcl PHA 07/11/24 Transmitted (Zofran) 11:00 Complete Blood Count LAB 07/12/24 Verified 04:00 Comprehensive LAB 07/12/24 Verified Metabolic Panel 04:00 Cardiac DIET 07/11/24 Transmitted Diet-2gna,Lofat,Lochol Lunch Acetaminophen Tablet PHA 07/11/24 Transmitted (Tylenol Tablet) 11:00 Date of Service: Jul 11, 2024 Billing Provider: JANIA BAEZ Common Visit Codes: [id number] INP/OBS CARE (HIGH) JANIA BAEZ Jul 11, 2024 11:02
[2024-07-11] MEDS: IPRATROPIUM BROM 0.5 MG/2.5ML INH SOL NEB SCH (13:42)
[2024-07-11] MEDS: ALBUTEROL SULF 2.5 MG/0.5ML(0.5%) NEB SOLN NEB SCH (13:43)
[2024-07-11] MEDS: methylPREDNISolone SOD SUCC 40 MG/ML VL IV SCH (14:00)
[2024-07-11] MEDS: ACETAMINOPHEN 325 MG TAB PO PRN (15:41)
[2024-07-11] MEDS: ONDANSETRON HCL 4 MG/2 ML VIAL IV PRN (15:42)
[2024-07-11] MEDS: ALBUTEROL SULF 2.5 MG/0.5ML(0.5%) NEB SOLN NEB PRN (16:20)
[2024-07-11] MEDS: IPRATROPIUM BROM 0.5 MG/2.5ML INH SOL NEB PRN (16:21)
[2024-07-11] MEDS ORDERED: IPRAAER6 (17:42)
[2024-07-11] MEDS ORDERED: ALBU0.084 (17:44)
[2024-07-11] MEDS: HYDROcodone-ACET 5/325MG TAB PO ONE (21:15)
[2024-07-12] VITALS (14 sets, daily range): BP systolic 104–126; BP diastolic 67–79; PULSE 66–104; RESP 16–21; TEMP 97.6–97.9; O2SAT 93–99
[2024-07-12 08:29] LABS: Basophils # (auto) 0 10 ^3/uL (0-0.2); Basophils % (auto) 0.1 % (0.0-2.0); Eosinophils # (auto) 0 10 ^3/uL (0-0.8); Hemoglobin 13.9 g/dL (12.2-16.2); Lymphocytes % (auto) 7.8 % (10.0-50.0); Mean Corpuscular Hemoglobin 29.3 pg (28.0-32.0); Mean Corpuscular Volume 88.9 fL (80.0-100.0); Monocytes # (auto) 0.3 10 ^3/uL (0-1.3); Monocytes % (auto) 2.4 % (0.0-12.0); Neutrophils # (auto) 11.8 10 ^3/uL (1.6-8.6); Neutrophils % (auto) 89.7 % (37.0-80.0); Platelet Count (auto) 237 10^3/uL (140-450); Red Blood Cells 4.73 10^6/uL (4.0-5.20); White Blood Cell 13.1 10^3/uL (4.4-10.8)
[2024-07-12 08:37] LABS: Albumin 4.6 g/dL (3.2-4.8); Alkaline Phosphatase 102 U/L (46-116); Anion Gap 9 (5-15); Aspartate Aminotransferase 25 U/L (13-40); BUN/Creatinine Ratio 18.4 (10.0-20.0); Blood Urea Nitrogen 16 mg/dL (9-23); Calcium 10.2 mg/dL (8.7-10.4); Carbon Dioxide 25 mmol/L (20-31); Chloride 106 mmol/L (98-107); Potassium 4.7 mmol/L (3.5-5.1); Sodium 140 mmol/L (136-145)
[2024-07-12 08:38] LABS: Alanine Aminotransferase 43 U/L (7-40); Bilirubin, Total 0.3 mg/dL (0.2-1.0); Glucose 158 mg/dL (74-106); Total Protein 7.2 g/dL (5.7-8.2)
[2024-07-12] MEDS: FAMOTIDINE (10MG/ML) 2ML VL IV SCH (09:27)
[2024-07-12] MEDS: cefTRIAXone 1GM/50ML D5W 50 ML IV SCH (09:53)
[2024-07-12] MEDS: AZITHROMYCIN 250 MG TAB PO ONE (11:50)
[2024-07-12] MEDS: traMADol HCL 50 MG TAB PO PRN (11:52)
--- NOTE | 2024-07-12 14:06 | DVHPN2 ---
Subjective Seen and examined at bedside, c/o shortness of breath. Barely able to complete full sentences Changes from previous H/P or p: No Changes Eyes: No Pain, No Vision change, No Conjunctivae inflammation, No Eyelid inflammation, No Other, No Redness ENT: No Ear pain, No Ear discharge, No Nose pain, No Nose discharge, No Nose congestion, No Mouth pain, No Mouth swelling, No Throat pain, No Throat swelling, No Other Cardiovascular: No Chest Pain, No Palpitations, No Orthopnea, No Paroxysmal Noc. Dyspnea, No Edema, No Lt Headedness, No Other Respiratory: Cough; No Dry; Shortness of breath; No SOB with excertion, No Wheezing, No Hemoptysis, No Pleuritic Pain, No Sputum, No Other Gastrointestinal: No Nausea, No Vomiting, No Abdominal Pain, No Diarrhea, No Constipation, No Melena, No Hematochezia, No Other Genitourinary: No Dysuria, No Frequency, No Incontinence, No Hematuria, No Retention, No Other Musculoskeletal: No other, No neck pain, No shoulder pain, No arm pain, No back pain, No hand pain, No leg pain, No foot pain Skin: No Rash, No Lesions, No Jaundice, No Bruising, No Other Objective Vitals Vital Signs Date Time Temp Pulse Resp B/P (MAP) Pulse Ox O2 Delivery O2 Flow Rate FiO2 07/12/24 09:59 90 18 94 07/12/24 09:59 Room Air 0.0 07/12/24 09:59 21 07/12/24 09:00 97.8 113/73 (86) 97.8 Intake/Output Intake and Output 07/12/24 07:00 Intake Total 240 ml Balance 240 ml Intake Oral 240 ml # Voids 2 General Appearance: Alert, Oriented X3, Cooperative, No acute distress Lungs: Other (Wheezing) Cardiovascular: Regular rate, Normal S1, Normal S2 Abdomen: Normal bowel sounds, Soft Psych/Mental Status: Mental status NL Medications Current Medications Medications Dose Ordered Sig/[place] Route Start Time Stop Time Status Last Admin Dose Admin Albuterol 2.5 mg Q4HWA NEB 07/11/24 14:00 07/12/24 09:59 2.5 MG Albuterol 2.5 mg Q2HPRN PRN NEB 07/11/24 11:00 07/11/24 16:20 2.5 MG Ipratropium [place] 0.5 mg Q4HWA NEB 07/11/24 14:00 07/12/24 09:58 0.5 MG Ipratropium [place] 0.5 mg Q2HPRN PRN NEB 07/11/24 11:00 07/11/24 16:21 0.5 MG Methylprednisolone Sodium Succinate 40 mg Q8HR IV 07/11/24 14:00 07/12/24 13:41 40 MG Famotidine 20 mg DAILY IV 07/12/24 10:00 07/12/24 09:27 20 MG Ondansetron HCl 4 mg Q4HP PRN IV 07/11/24 11:00 07/11/24 15:42 4 MG Acetaminophen 650 mg Q6HP PRN PO 07/11/24 11:00 07/12/24 09:27 650 MG Azithromycin 250 mg DAILY PO 07/13/24 10:00 Tramadol HCl 50 mg Q6HP PRN PO 07/12/24 11:15 07/12/24 11:52 50 MG Laboratory Results Laboratory Tests 07/12/24 07:25 Chemistry Test 07/12/24 07:25 Albumin 4.6 g/dL (3.2-4.8) Calcium Level 10.2 mg/dL (8.7-10.4) Total Protein 7.2 g/dL (5.7-8.2) LFT Test 07/12/24 07:25 Alanine Aminotransferase (ALT) 43 U/L (7-40) H Alkaline Phosphatase 102 U/L (46-116) Aspartate Amino Transferase (AST) 25 U/L (13-40) Total Bilirubin 0.3 mg/dL (0.2-1.0) Urinalysis Test 07/11/24 08:16 Urine Color Light-yellow (Yellow) Urine Clarity Turbid (Clear) H Urine pH 5.0 (5.0-9.0) Urine Specific [place] 1.012 (1.001-1.035) Urine Protein Negative (Negative) Urine Ketones Negative (Negative) Urine Blood Negative /uL (Negative) Urine Nitrite Negative (Negative) Urine Bilirubin Negative (Negative) Urine Urobilinogen Normal mg/dL (Negative) Urine Leukocyte Esterase Negative /uL (Negative) Urine RBC 1 /hpf (0 - 4) Urine Microscopic WBC 1 /HPF (0-5) Urine Squamous Epithelial Cells Few /hpf (<5) Urine Bacteria None seen /hpf (None Seen) Urine Glucose Normal mg/dL (Normal) Assessment/Plan Assessment/Plan Acute on chronic asthma exacerbation Steroids Bronchodilators Zithromax Obesity Counseled patient on lifestyle modifications, diet, and exercise FEN/PPX diet NPO DVT ppx -not indicated patient ambulating PUD ppx - Famotidine given with steroids Plan discussed with: Patient My Orders Orders - ALFONSO WINTER MD Procedure Category Date Status Time Azithromycin Tablet PHA 07/13/24 In Process (Zithromax Tablet) 10:00 Tramadol Hcl (Ultram) PHA 07/12/24 In Process 11:15 Date of Service: Jul 12, 2024 Billing Provider: ALFONSO WINTER MD Common Visit Codes: [id number] INP/OBS CARE(HIGH) ALFONSO WINTER MD Jul 12, 2024 14:06
[2024-07-12 15:45] LABS: COVID19 ANTIGEN SOFIA FIA NEGATIVE (NEGATIVE); Rapid Influenza A Negative (Negative); Rapid Influenza B Negative (Negative)
[2024-07-13] VITALS (16 sets, daily range): BP systolic 114–143; BP diastolic 63–78; PULSE 61–97; RESP 16–20; TEMP 97.5–98.4; O2SAT 92–99
[2024-07-13] MEDS: AZITHROMYCIN 250 MG TAB PO SCH (09:42)
[2024-07-13] MEDS ORDERED: PRED20TA2 PO (11:59)
[2024-07-13] MEDS ORDERED: ALBU108A5 IN (11:59)
[2024-07-13] MEDS ORDERED: AZIT-43 PO (11:59)
--- NOTE | 2024-07-13 12:02 | DVHDS2 ---
Discharge Summary Date of Admission Jul 11, 2024 at 10:48 Date of Discharge: Jul 13, 2024 Admitting Diagnosis asthma exacerbation Labs/Diagnostic Data: Laboratory Results Test 07/12/24 14:15 07/12/24 07:25 07/11/24 08:16 Influenza Type A Antigen Negative (Negative) Influenza Type B Antigen Negative (Negative) SARS-CoV-2 Antigen (Rapid) Negative (NEGATIVE) White Blood Count 13.1 10^3/uL (4.4-10.8) Red Blood Count 4.73 10^6/uL (4.0-5.20) Hemoglobin 13.9 g/dL (12.2-16.2) Hematocrit 42.0 % (36.0-46.0) Mean Corpuscular Volume 88.9 fL (80.0-100.0) Mean Corpuscular Hemoglobin 29.3 pg (28.0-32.0) Mean Corpuscular Hemoglobin Concent 33.0 g/dL (32.0-36.0) Red Cell Distribution Width 14.0 % (11.8-14.3) Platelet Count 237 10^3/uL (140-450) Mean Platelet Volume 9.1 fL (6.9-10.8) Neutrophils (%) (Auto) 89.7 % (37.0-80.0) Lymphocytes (%) (Auto) 7.8 % (10.0-50.0) Monocytes (%) (Auto) 2.4 % (0.0-12.0) Eosinophils (%) (Auto) 0.0 % (0.0-7.0) Basophils (%) (Auto) 0.1 % (0.0-2.0) Neutrophils # (Auto) 11.8 10 ^3/uL (1.6-8.6) Lymphocytes # (Auto) 1.0 10 ^3/uL (0.4-5.4) Monocytes # (Auto) 0.3 10 ^3/uL (0-1.3) Eosinophils # (Auto) 0 10 ^3/uL (0-0.8) Basophils # (Auto) 0 10 ^3/uL (0-0.2) Nucleated Red Blood Cells 0.0 % Sodium Level 140 mmol/L (136-145) Potassium Level 4.7 mmol/L (3.5-5.1) Chloride Level 106 mmol/L (98-107) Carbon Dioxide Level 25 mmol/L (20-31) Anion Gap 9 (5-15) Blood Urea Nitrogen 16 mg/dL (9-23) Creatinine 0.87 mg/dL (0.550-1.02) Glomerular Filtration Rate Calc 86 mL/min (>90) BUN/Creatinine Ratio 18.4 (10.0-20.0) Serum Glucose 158 mg/dL (74-106) Calcium Level 10.2 mg/dL (8.7-10.4) Total Bilirubin 0.3 mg/dL (0.2-1.0) Aspartate Amino Transferase (AST) 25 U/L (13-40) Alanine Aminotransferase (ALT) 43 U/L (7-40) Alkaline Phosphatase 102 U/L (46-116) Total Protein 7.2 g/dL (5.7-8.2) Albumin 4.6 g/dL (3.2-4.8) Urine Color Light-yellow (Yellow) Urine Clarity Turbid (Clear) Urine pH 5.0 (5.0-9.0) Urine Specific [place] 1.012 (1.001-1.035) Urine Protein Negative (Negative) Urine Ketones Negative (Negative) Urine Blood Negative /uL (Negative) Urine Nitrite Negative (Negative) Urine Bilirubin Negative (Negative) Urine Urobilinogen Normal mg/dL (Negative) Urine Leukocyte Esterase Negative /uL (Negative) Urine RBC 1 /hpf (0 - 4) Urine Microscopic WBC 1 /HPF (0-5) Urine Squamous Epithelial Cells Few /hpf (<5) Urine Bacteria None seen /hpf (None Seen) Urine Glucose Normal mg/dL (Normal) Other Laboratory Tests 07/12/24 07:25 Brief Hx & Hospital Course: Fadumo Masters is a 39-year-old female with past medical history of asthma, cholecystectomy, , right kidney stent over 3 years ago at [facility] who presents to the ED for shortness of breath, nonproductive cough, and headache x5 days. Patient states that she was at home on her couch and just started suddenly getting short of breath with wheezing and when she took her breathing treatments with no relief. Patient was treated with steroids, bronchodilators, and Zithromax. Patient is feeling better, will be discharged home today with Prednisone Condition at Discharge: Stable Final Diagnosis/Problems List Acute on chronic asthma exacerbation Steroids Bronchodilators Zithromax Obesity Counseled patient on lifestyle modifications, diet, and exercise Discharge Disposition: Home Discharge Statement: "Patient was advised to return to the ER or call 911 if any headaches, dizziness, shortness of breath, chest pain, abdominal pain, bleeding, fevers, or worsening of medical condition. Patient was counseled about treatment plan, medications, possible side effects, patientverbalized understanding. All questions were answered to the best of my ability. This discharge took greater then 30 minutes in planning, reviewing documentation, counseling the patient, and discussing with other team members." ASSESSMENT ASSESSMENT Assessment Date of Service: Jul 13, 2024 Billing Provider: ALFONSO WINTER MD Common Visit Codes: [id number] DISCH DAY >30min ALFONSO WINTER MD Jul 13, 2024 12:02
== END 2024-07-13 18:00 | disposition home or self-care (01) | DRG 203 ==
LOC: ER 07:48 → OVERFLOW 10:48 → WEST WING 23:33
PROVIDERS: ADMIT Internal Medicine; ATTEND Internal Medicine
DX: J45.901 Unspecified asthma with (acute) exacerbation (principal); E66.9 Obesity, unspecified; Z20.822 Contact with and (suspected) exposure to COVID-19; Z90.49 Acquired absence of other specified parts of digestive tract; Z68.30 Body mass index [BMI] 30.0-30.9, adult
CPT/HCPCS: 36415; 71045; 80048; 80053; 81001; 85025; 87426; 87804; 94640; 96365; 96375; 99291; 99292; G0378; J2405; J3490